=== PATIENT | female | born 1990 ===

== ENCOUNTER 2024-10-14 14:54 | Outpatient (CLI) | payer OTHER | END 2024-10-14 15:03 | disposition home or self-care (01) | LOC: SONOGRAMA 14:54 | PROVIDERS: ATTEND Internal Medicine | DX: N83.209 Unspecified ovarian cyst, unspecified side (principal) ==

== ENCOUNTER 2025-03-25 11:03 | Outpatient (CLI) | payer OTHER | END 2025-03-25 11:12 | disposition home or self-care (01) | LOC: SONOGRAMA 11:03 | PROVIDERS: ATTEND Internal Medicine | DX: R22.1 Localized swelling, mass and lump, neck (principal); D68.020 Von Willebrand disease, type 2A; E04.2 Nontoxic multinodular goiter; F41.1 Generalized anxiety disorder; M54.50 Low back pain, unspecified ==